=== PATIENT | female | born 1970 | race Caucasian/White ===

== ENCOUNTER → 2016-08-06 | Outpatient (CLI) | payer OTHER ==
[~2016-08-06] MED LIST: COMBIVENT INH14.7 GM; ERYC250 MG; IPRATROPIUM0.2 MG/ML; NO MEDICATIONS; ZITHROMAX1 G/PKT PO
--- NOTE | ~2016-08-06 | MY11 ---
[facility] A Service of [facility] RADIOLOGY TEXT RESULTS PATIENT: JESUS HERNANDEZ LOCATION: [facility] : 66 UNIT #: [id number] AGE: [address]: Isaiah Obrien MD SEX: F ORDER DR: [id number] [facility] [address] [place], [place] [address] [id number] O MR#: [id number] #: [id number] NAME: JESUS HERNANDEZ : 1970 SEX: F STUDY DATE/TIME: 08/06/2016 9:23 UNIT: [facility] ROOM: STUDY DESCRIPTION: MY Mammogram Screening Dig Hubert Attending Physician: Isaiah Obrien M.D. Ordering Physician: Isaiah Obrien M.D. Primary Care Physician: Isaiah Obrien M.D. MEDICAL IMAGING REPORT This report is preliminary unless electronic signature is present EXAM Digital screening mammogram, 08/06/2016 HISTORY 46-year-old woman with prior ultrasound-guided right breast biopsy yielding high-risk histology. Annual screening. COMPARISON Mammograms 08/25/2014 with right breast diagnostic followup 09/26/2014. Ultrasound-guided right breast biopsy 10/20/2014. FINDINGS Digital imaging of each breast was completed utilizing screening protocol. Review includes FDA-approved CAD device. Breast parenchyma is heterogeneous and mildly fatty replaced. Parenchymal asymmetry is again noted with dominance present in the right breast. Previously sampled dominant area centrally located middle to anterior third appears unchanged. Biopsy marker projects just anterior to this location. Parenchymal dominance upper outer quadrant of the same right breast appears stable as well. I see no interval occurring mass or interval occurring suspicious microcalcifications. No visible architectural distortion. IMPRESSION Stable benign mammogram with stable parenchymal dominance right breast. Annual screening imperative. Patients over the age of 40 are entered into a reminder system with target due date for the next mammogram. A result letter will also be sent to the patient. BIRADS: 2 Benign Finding [facility] A Service of [facility] RADIOLOGY TEXT RESULTS PATIENT: JESUS HERNANDEZ LOCATION: [facility] : 66 UNIT #: [id number] AGE: [address]: Isaiah Obrien MD SEX: F ORDER DR: Dictated by... Geoffrey Tolentino M.D. THIS IS AN ELECTRONICALLY VERIFIED REPORT Geoffrey Tolentino M.D. at 08/06/2016 11:14 AM Nick TD: 08/06/2016 09:57 JOB #: [id number] MEDICAL IMAGING REPORT Page 1 of 1 COPY
== END | disposition home or self-care (01) ==
LOC: CWCC 09:02
DX: Z12.31 Encounter for screening mammogram for malignant neoplasm of breast (principal); Z98.890 Other specified postprocedural states
CPT/HCPCS: G0202